=== PATIENT | male | born 1950 | race Asian ===

== ENCOUNTER 2016-09-08 02:05 | Inpatient (IN) | payer MEDICARE, MEDICAID ==
[~2016-09-08] VITALS: Ht 165.1 cm; Wt 49.2 kg
[~2016-09-08 02:05] MED LIST: ACET650S14 PR; ACID1TAB4 PO; ASA3 PO; ATOR40TA28 PO; AUD NEB; B CO1CAP4 PO; CHOL100030 PO; ESCI10TA PO; HEP5KI SQ; IPRNEB NEB; OXYC-158 PO; PANT40TA25 PO
[2016-09-08] MEDS ORDERED: IPRATROPIUM BROMIDE 0.5 MG/2.5 ML NEB SOLUTION NEB ONE (02:15)
[2016-09-08] MEDS ORDERED: ALBUTEROL SULFATE 5 MG/ML 20 ML NEB SOLN [BULK] NEB ONE (02:15)
[2016-09-08] MEDS ORDERED: CLOP75 PO (02:17)
[2016-09-08] MEDS ORDERED: ESCI10TA PO (02:17)
[2016-09-08] MEDS ORDERED: QUET25TA PO (02:17)
[2016-09-08] MEDS ORDERED: ASPI81TA2 PO (02:17)
[2016-09-08] MEDS ORDERED: DSS100 PO (02:17)
[2016-09-08] MEDS ORDERED: MUPI1OIN5 NASAL (02:17)
[2016-09-08] MEDS ORDERED: HEPA500015 SQ (02:17)
[2016-09-08] MEDS ORDERED: LOSA50TA37 PO (02:17)
[2016-09-08] MEDS ORDERED: INSNOV SQ (02:17)
[2016-09-08] MEDS ORDERED: FAMO20 PO (02:17)
[2016-09-08] MEDS ORDERED: ATOR10TA84 PO (02:17)
[2016-09-08] MEDS ORDERED: 0.9% SODIUM CHLORIDE 5 ML NEB SOLUTION NEB ONE ×2 (02:20→13:46)
[2016-09-08] MEDS ORDERED: MethylPREDNISolone SOD SUCC 125 MG/2 ML VIAL IVP ONE (02:30)
[2016-09-08] MEDS ORDERED: RAPID SEQUENCE KIT [RSI] 1 EACH KIT ONE ×2 (02:50)
[2016-09-08] MEDS ORDERED: PROPOFOL 1000 MG/ISO-OSM 100 ML IV PRN (03:09)
[2016-09-08 03:25] LABS: HEMATOCRIT 33.3 % (41-53); HEMOGLOBIN 10.4 g/dL (13.5-17.5); MEAN CORPUSCULAR HEMOGLOBIN 31.3 pg (26.0-34.0); MEAN CORPUSCULAR HGB CONC 31.3 G/dL (31.0-37.0); MEAN CORPUSCULAR VOLUME 100 fL (80-100); PLATELET COUNT (AUTO) 312 K/uL (150-450); RED BLOOD CELL COUNT(AUTO) 3.32 MIL/uL (4.50-5.90); RED CELL DISTRIBUTION WIDTH 17.5 % (11.5-14.5); WHITE BLOOD COUNT (AUTO) 28.5 K/uL (4.5-11.0)
[2016-09-08] MEDS ORDERED: VECURONIUM BROMIDE 10 MG/VIAL IVP ONE ×2 (03:30→12:00)
[2016-09-08] MEDS ORDERED: ETOMIDATE 2 MG/ML 10 ML VIAL IVP ONE ×2 (03:30→12:00)
[2016-09-08 03:38] LABS: SODIUM SERUM 133 mmol/L (136-145)
[2016-09-08 03:39] LABS: ANION GAP 12 mmol/L (8-16); CALCIUM, TOTAL 8.5 mg/dL (8.8-10.5); CARBON DIOXIDE 29 mmol/L (22-29); CHLORIDE 92 mmol/L (98-107); CREATININE 5.51 mg/dL (0.60-1.30); GLOMERULAR FILTR. RATE CALC 10 mL/min (>60); POTASSIUM 3.9 mmol/L (3.5-5.1); UREA NITROGEN, BLOOD 40 mg/dL (7-18)
[2016-09-08 03:43] LABS: BAND NEUTROPHILS % (MANUAL) 7 % (1-5); LYMPHOCYTES % (MANUAL) 5 % (22-44); TOTAL CELLS COUNTED 100
[2016-09-08 03:44] LABS: RBC MORPHOLOGY COMMENT ABNORMAL RBC MORPH
[2016-09-08 03:45] LABS: B-TYPE NATRIURETIC PEPTIDE > 5000 pg/mL (0-100)
[2016-09-08 03:50] LABS: ABG BASE EXCESS -0.3 mmol/L (-2.0-3.0); ABG HCO3 23.9 mmol/L (22.0-26.0); ABG OXYHEMOGLOBIN 97.8 % (94.0-100.0); ABG PCO2 51 mmHg (35-45); ABG PH 7.321 (7.35-7.450); TEMPERATURE, FAHRENHEIT, BG 98.5 FAHREN (96.0-98.6)
[2016-09-08 03:51] LABS: ALLEN TEST, BLOOD GAS POS
[2016-09-08 03:59] LABS: ALANINE AMINOTRANSFERASE 24 U/L (12-78); ALBUMIN 2.8 g/dL (3.4-5.0); ASPARTATE AMINOTRANSFERASE 29 U/L (15-37); BILIRUBIN,TOTAL 0.4 mg/dL (0.1-1.0); CREATINE KINASE MB 4.7 ng/mL (0-5); CREATINE KINASE, TOTAL 110 U/L (39-308)
[2016-09-08] MEDS ORDERED: PIPERACILLIN/TAZO 3.375 GM/D5W 50 ML IV ONE (04:00)
[2016-09-08] MEDS ORDERED: ACETAMINOPHEN 325 MG TABLET PO PRN ×2 (04:45→05:15)
[2016-09-08] MEDS ORDERED: 0.9% SODIUM CHLORIDE 10 ML SYRINGE IVP PRN (04:45)
[2016-09-08] MEDS ORDERED: MORPHINE SULFATE 2 MG/ML SYRINGE IVP PRN (05:15)
[2016-09-08] MEDS ORDERED: BISACODYL 10 MG RECTAL RECTAL SUPPOSITORY PR PRN (05:15)
[2016-09-08] MEDS ORDERED: DEXTROSE 50%-WATER 25 GM/50 ML SYRINGE IVP PRN (05:15)
[2016-09-08] MEDS ORDERED: INSULIN ASPART 100 UNITS/ML SQ PRN (05:15)
[2016-09-08] MEDS ORDERED: MAGNESIUM HYDROXIDE SUSPENSION 30 ML UDCUP PO PRN (05:15)
[2016-09-08] MEDS ORDERED: PIPERACILLIN SODIUM/TAZOBACTAM 0.75 GM in DEXTROSE 5%-WATER 50 ML IV PRN (05:30)
[2016-09-08 05:42] VITALS: BP 141/88
[2016-09-08 05:51] LABS: REFLEX LACTIC ACID? YES YES
[2016-09-08 08:00] VITALS: BP 132/86
[2016-09-08] MEDS: ALBUTEROL SULFATE 2.5 MG/0.5 ML NEB SOLUTION NEB SCH ×3 (08:00→19:51)
[2016-09-08] MEDS: HEPARIN SODIUM,PORCINE 5,000 UNITS/ML VIAL SQ SCH ×2 (08:37→18:19)
[2016-09-08] MEDS: ESCITALOPRAM OXALATE 10 MG TABLET PO SCH (08:37)
[2016-09-08] MEDS: QUEtiapine FUMARATE 25 MG TABLET PO SCH ×3 (08:38→20:51)
[2016-09-08] MEDS: ASPIRIN 81 MG CHEWABLE TABLET PO SCH (08:38)
[2016-09-08] MEDS: CLOPIDOGREL BISULFATE 75 MG TABLET PO SCH (08:38)
[2016-09-08] MEDS: PANTOPRAZOLE SODIUM 40 MG DR TABLET PO SCH (08:38)
[2016-09-08 10:09] LABS: HEMOGLOBIN A1C 5.6 % (4.5-6.2)
[2016-09-08 10:29] LABS: VITAMIN B12 LEVEL 902 pg/mL (211-911)
[2016-09-08 12:00] VITALS: BP 126/77
[2016-09-08] MEDS: PIPERACILLIN SODIUM/TAZOBACTAM 2.25 GM in DEXTROSE 5%-WATER 50 ML IV SCH ×2 (12:30→20:51)
[2016-09-08] MEDS ORDERED: SODIUM CHLORIDE 0.9% 250 ML IV ONE (12:43)
[2016-09-08 16:00] VITALS: BP 106/66
[2016-09-08 16:36] LABS: GLUCOSE COMMENT 1 Juice/Food/D50 Given; GLUCOSE,POINT OF CARE 61 MG/DL (70-110)
[2016-09-08 16:36] LABS: GLUCOSE,POINT OF CARE 125 MG/DL (70-110)
[2016-09-08] MEDS: IPRATROPIUM BROMIDE 0.5 MG/2.5 ML NEB SOLUTION NEB PRN (19:51)
[2016-09-08] MEDS: PROPOFOL 1000 MG/ISO-OSM 100 ML IV PRN (19:55)
[2016-09-08 20:00] VITALS: BP 117/76
[2016-09-08 22:19] LABS: CREATINE KINASE MB 19.5 ng/mL (0-5)
[2016-09-09] VITALS: BP 108/65
[2016-09-09] MEDS: HEPARIN SODIUM,PORCINE 5,000 UNITS/ML VIAL SQ SCH ×3 (00:30→17:07)
[2016-09-09 02:12] LABS: GLUCOSE,POINT OF CARE 117 MG/DL (70-110)
[2016-09-09 02:12] LABS: GLUCOSE,POINT OF CARE 206 MG/DL (70-110)
[2016-09-09 02:12] LABS: GLUCOSE,POINT OF CARE 106 MG/DL (70-110)
[2016-09-09] MEDS: IPRATROPIUM BROMIDE 0.5 MG/2.5 ML NEB SOLUTION NEB PRN ×2 (02:17→19:28)
[2016-09-09] MEDS: ALBUTEROL SULFATE 2.5 MG/0.5 ML NEB SOLUTION NEB SCH ×4 (02:17→19:28)
[2016-09-09 04:00] VITALS: BP 113/69
[2016-09-09] MEDS: PIPERACILLIN SODIUM/TAZOBACTAM 2.25 GM in DEXTROSE 5%-WATER 50 ML IV SCH ×3 (04:23→20:34)
[2016-09-09 04:49] LABS: BASOPHILS % (AUTO) 0.1 % (0.0-2.0); EOSINOPHILS % (AUTO) 0.1 % (1.0-6.0); HEMOGLOBIN 9.9 g/dL (13.5-17.5); LYMPHOCYTES # (AUTO) 1.2 K/uL (1.0-4.8); LYMPHOCYTES % (AUTO) 6.2 % (22.0-44.0); MEAN CORPUSCULAR HEMOGLOBIN 31.9 pg (26.0-34.0); MEAN CORPUSCULAR HGB CONC 31.8 G/dL (31.0-37.0); MEAN CORPUSCULAR VOLUME 100 fL (80-100); MONOCYTES # (AUTO) 0.8 K/uL (0.1-1.0); NEUTROPHILS # (AUTO) 17.7 K/uL (1.8-7.7); PLATELET COUNT (AUTO) 254 K/uL (150-450); RED BLOOD CELL COUNT(AUTO) 3.09 MIL/uL (4.50-5.90); RED CELL DISTRIBUTION WIDTH 17.6 % (11.5-14.5); WHITE BLOOD COUNT (AUTO) 19.8 K/uL (4.5-11.0)
[2016-09-09 04:50] LABS: NEUTROPHILS % (AUTO) 89.6 % (40.0-70.0)
[2016-09-09 04:55] LABS: ALBUMIN 2.3 g/dL (3.4-5.0); BILIRUBIN,TOTAL 0.5 mg/dL (0.1-1.0); CALCIUM, TOTAL 8.2 mg/dL (8.8-10.5); CREATININE 6.25 mg/dL (0.60-1.30); MAGNESIUM 2.4 mg/dL (1.80-2.40); PHOSPHORUS 8.2 mg/dL (2.5-4.9); POTASSIUM 5.8 mmol/L (3.5-5.1); THYROID STIMULATING HORMONE 3.71 uIU/mL (0.36-3.74); TOTAL PROTEIN, SERUM 6.7 g/dL (6.4-8.2)
[2016-09-09 05:05] LABS: CREATINE KINASE MB 30.6 ng/mL (0-5)
[2016-09-09] MEDS: PROPOFOL 1000 MG/ISO-OSM 100 ML IV PRN ×2 (05:49→08:55)
[2016-09-09] MEDS ORDERED: 0.9% SODIUM CHLORIDE 5 ML NEB SOLUTION NEB ONE ×2 (07:47→14:26)
[2016-09-09 08:00] VITALS: BP 113/74
[2016-09-09] MEDS: CLOPIDOGREL BISULFATE 75 MG TABLET PO SCH (08:55)
[2016-09-09] MEDS: QUEtiapine FUMARATE 25 MG TABLET PO SCH ×3 (08:55→20:34)
[2016-09-09] MEDS: ESCITALOPRAM OXALATE 10 MG TABLET PO SCH (08:55)
[2016-09-09] MEDS: PANTOPRAZOLE SODIUM 40 MG DR TABLET PO SCH (08:55)
[2016-09-09] MEDS: ASPIRIN 81 MG CHEWABLE TABLET PO SCH (08:56)
[2016-09-09] MEDS: -POST HEMODIALYSIS NOTE- MISC SCH ×2 (09:00→14:31)
[2016-09-09 10:15] LABS: ABG A-A DIFF O2 43.1 mmHg (10-20.0); ABG BASE EXCESS 1.8 mmol/L (-2.0-3.0); ABG HCO3 26.2 mmol/L (22.0-26.0); ABG OXYHEMOGLOBIN 98.6 % (94.0-100.0); ABG PCO2 35 mmHg (35-45); ABG PH 7.481 (7.35-7.450); ALLEN TEST, BLOOD GAS Positive; TEMPERATURE, FAHRENHEIT, BG 98.6 FAHREN (96.0-98.6)
[2016-09-09] MEDS ORDERED: SODIUM POLYSTYRENE SULFONATE 15 GM/60 ML SUSPENSION BOTTLE PO ONE (11:15)
[2016-09-09] MEDS ORDERED: SODIUM CHLORIDE 0.9% 250 ML IV ONE (11:37)
[2016-09-09 12:00] VITALS: BP 104/67
[2016-09-09 16:00] VITALS: BP 110/67
[2016-09-09 20:00] VITALS: BP 103/63
[2016-09-10] VITALS: BP 111/68
[2016-09-10] MEDS: HEPARIN SODIUM,PORCINE 5,000 UNITS/ML VIAL SQ SCH ×3 (00:57→16:30)
[2016-09-10] MEDS: IPRATROPIUM BROMIDE 0.5 MG/2.5 ML NEB SOLUTION NEB PRN ×3 (01:48→19:45)
[2016-09-10] MEDS: ALBUTEROL SULFATE 2.5 MG/0.5 ML NEB SOLUTION NEB SCH ×4 (01:48→19:45)
[2016-09-10 04:00] VITALS: BP 127/74
[2016-09-10] MEDS: PIPERACILLIN SODIUM/TAZOBACTAM 2.25 GM in DEXTROSE 5%-WATER 50 ML IV SCH ×3 (04:19→20:24)
[2016-09-10 05:25] LABS: BASOPHILS % (AUTO) 0.1 % (0.0-2.0); EOSINOPHILS % (AUTO) 1.1 % (1.0-6.0); HEMATOCRIT 30.7 % (41-53); LYMPHOCYTES # (AUTO) 0.9 K/uL (1.0-4.8); LYMPHOCYTES % (AUTO) 6.9 % (22.0-44.0); MEAN CORPUSCULAR HGB CONC 32.5 G/dL (31.0-37.0); MEAN CORPUSCULAR VOLUME 98 fL (80-100); MONOCYTES # (AUTO) 0.7 K/uL (0.1-1.0); MONOCYTES % (AUTO) 5.5 % (2.0-9.0); NEUTROPHILS # (AUTO) 10.8 K/uL (1.8-7.7); PLATELET COUNT (AUTO) 250 K/uL (150-450); RED BLOOD CELL COUNT(AUTO) 3.12 MIL/uL (4.50-5.90); RED CELL DISTRIBUTION WIDTH 18.4 % (11.5-14.5); WHITE BLOOD COUNT (AUTO) 12.5 K/uL (4.5-11.0)
[2016-09-10 05:28] LABS: NEUTROPHILS % (AUTO) 86.4 % (40.0-70.0)
[2016-09-10] MEDS: PROPOFOL 1000 MG/ISO-OSM 100 ML IV PRN ×2 (05:31→16:30)
[2016-09-10 05:32] LABS: ALBUMIN 2.2 g/dL (3.4-5.0); BILIRUBIN,TOTAL 0.5 mg/dL (0.1-1.0); CALCIUM, TOTAL 8.4 mg/dL (8.8-10.5); CREATININE 7.31 mg/dL (0.60-1.30); POTASSIUM 4.7 mmol/L (3.5-5.1); TOTAL PROTEIN, SERUM 6.5 g/dL (6.4-8.2)
[2016-09-10 08:00] VITALS: BP 118/73
[2016-09-10] MEDS: -POST HEMODIALYSIS NOTE- MISC SCH (08:25)
[2016-09-10 08:26] LABS: GLUCOSE,POINT OF CARE 92 MG/DL (70-110)
[2016-09-10 08:26] LABS: GLUCOSE COMMENT 1 Received Meds; GLUCOSE,POINT OF CARE 144 MG/DL (70-110)
[2016-09-10 08:26] LABS: GLUCOSE,POINT OF CARE 85 MG/DL (70-110)
[2016-09-10 08:26] LABS: GLUCOSE,POINT OF CARE 91 MG/DL (70-110)
[2016-09-10 08:26] LABS: GLUCOSE COMMENT 1 Received Meds; GLUCOSE,POINT OF CARE 125 MG/DL (70-110)
[2016-09-10] MEDS: CLOPIDOGREL BISULFATE 75 MG TABLET PO SCH (08:26)
[2016-09-10] MEDS: ESCITALOPRAM OXALATE 10 MG TABLET PO SCH (08:26)
[2016-09-10] MEDS: ASPIRIN 81 MG CHEWABLE TABLET PO SCH (08:26)
[2016-09-10] MEDS: PANTOPRAZOLE SODIUM 40 MG DR TABLET PO SCH (08:26)
[2016-09-10] MEDS: QUEtiapine FUMARATE 25 MG TABLET PO SCH ×3 (08:26→20:24)
[2016-09-10 09:02] LABS: RBC MORPHOLOGY COMMENT ABNORMAL RBC MORPH
[2016-09-10 09:03] LABS: ABG A-A DIFF O2 60.7 mmHg (10-20.0); ABG BASE EXCESS -0.4 mmol/L (-2.0-3.0); ABG HCO3 24.5 mmol/L (22.0-26.0); ABG OXYHEMOGLOBIN 98.3 % (94.0-100.0); ABG PCO2 35 mmHg (35-45); ABG PH 7.447 (7.35-7.450); TEMPERATURE, FAHRENHEIT, BG 98.6 FAHREN (96.0-98.6)
[2016-09-10 09:07] LABS: ALLEN TEST, BLOOD GAS Positive
[2016-09-10 12:00] VITALS: BP 127/73
[2016-09-10] MEDS ORDERED: SODIUM CHLORIDE 0.9% 1,000 ML IV ONE ×2 (12:56→12:57)
[2016-09-10] MEDS ORDERED: 0.9% SODIUM CHLORIDE 5 ML NEB SOLUTION NEB ONE (14:11)
[2016-09-10 16:00] VITALS: BP 131/71
[2016-09-10] MEDS ORDERED: SODIUM CHLORIDE 0.9% 250 ML IV ONE (17:11)
[2016-09-10 20:00] VITALS: BP 105/60
[2016-09-11] VITALS: BP 130/83
[2016-09-11] MEDS: HEPARIN SODIUM,PORCINE 5,000 UNITS/ML VIAL SQ SCH ×3 (00:09→17:28)
[2016-09-11] MEDS: PROPOFOL 1000 MG/ISO-OSM 100 ML IV PRN ×2 (01:35→09:17)
[2016-09-11] MEDS: ALBUTEROL SULFATE 2.5 MG/0.5 ML NEB SOLUTION NEB SCH ×4 (02:01→19:56)
[2016-09-11] MEDS: IPRATROPIUM BROMIDE 0.5 MG/2.5 ML NEB SOLUTION NEB PRN (02:01)
[2016-09-11 02:50] LABS: GLUCOSE,POINT OF CARE 105 MG/DL (70-110)
[2016-09-11 02:50] LABS: GLUCOSE COMMENT 1 Received Meds; GLUCOSE,POINT OF CARE 93 MG/DL (70-110)
[2016-09-11 02:50] LABS: GLUCOSE,POINT OF CARE 98 MG/DL (70-110)
[2016-09-11 04:00] VITALS: BP 122/70
[2016-09-11] MEDS ORDERED: SODIUM CHLORIDE 0.9% 250 ML IV ONE (04:33)
[2016-09-11] MEDS: PIPERACILLIN SODIUM/TAZOBACTAM 2.25 GM in DEXTROSE 5%-WATER 50 ML IV SCH ×3 (04:34→20:32)
[2016-09-11 06:43] LABS: BASOPHILS % (AUTO) 0.2 % (0.0-2.0); HEMATOCRIT 29.6 % (41-53); HEMOGLOBIN 9.3 g/dL (13.5-17.5); LYMPHOCYTES # (AUTO) 0.7 K/uL (1.0-4.8); LYMPHOCYTES % (AUTO) 6.2 % (22.0-44.0); MEAN CORPUSCULAR HEMOGLOBIN 31.5 pg (26.0-34.0); MEAN CORPUSCULAR HGB CONC 31.4 G/dL (31.0-37.0); MEAN CORPUSCULAR VOLUME 100 fL (80-100); MONOCYTES # (AUTO) 0.6 K/uL (0.1-1.0); MONOCYTES % (AUTO) 5.3 % (2.0-9.0); NEUTROPHILS # (AUTO) 9.3 K/uL (1.8-7.7); PLATELET COUNT (AUTO) 264 K/uL (150-450); RED BLOOD CELL COUNT(AUTO) 2.96 MIL/uL (4.50-5.90); RED CELL DISTRIBUTION WIDTH 18.1 % (11.5-14.5)
[2016-09-11] MEDS ORDERED: 0.9% SODIUM CHLORIDE 5 ML NEB SOLUTION NEB ONE ×2 (06:47→19:25)
[2016-09-11 07:00] LABS: NEUTROPHILS % (AUTO) 85.3 % (40.0-70.0)
[2016-09-11 07:06] LABS: ALBUMIN 2.2 g/dL (3.4-5.0); BILIRUBIN,TOTAL 0.5 mg/dL (0.1-1.0); CALCIUM, TOTAL 8.8 mg/dL (8.8-10.5); CREATININE 5.11 mg/dL (0.60-1.30); POTASSIUM 4.1 mmol/L (3.5-5.1); TOTAL PROTEIN, SERUM 6.8 g/dL (6.4-8.2)
[2016-09-11 08:00] VITALS: BP_SYST 133; BP_SYST 142; BP_DIAS 75; BP_DIAS 78
[2016-09-11] MEDS: ESCITALOPRAM OXALATE 10 MG TABLET PO SCH (09:17)
[2016-09-11] MEDS: -POST HEMODIALYSIS NOTE- MISC SCH (09:17)
[2016-09-11] MEDS: CLOPIDOGREL BISULFATE 75 MG TABLET PO SCH (09:17)
[2016-09-11] MEDS: QUEtiapine FUMARATE 25 MG TABLET PO SCH ×3 (09:17→20:54)
[2016-09-11] MEDS: ASPIRIN 81 MG CHEWABLE TABLET PO SCH (09:17)
[2016-09-11] MEDS: PANTOPRAZOLE SODIUM 40 MG DR TABLET PO SCH (09:17)
[2016-09-11 11:00] LABS: BAND NEUTROPHILS % (MANUAL) 9 % (1-5); LYMPHOCYTES % (MANUAL) 10 % (22-44); TOTAL CELLS COUNTED 100
[2016-09-11 11:01] LABS: RBC MORPHOLOGY COMMENT ABNORMAL RBC MORPH
[2016-09-11 11:51] LABS: ABG A-A DIFF O2 54.9 mmHg (10-20.0); ABG BASE EXCESS -2.4 mmol/L (-2.0-3.0); ABG HCO3 22.8 mmol/L (22.0-26.0); ABG OXYHEMOGLOBIN 98.3 % (94.0-100.0); ABG PCO2 36 mmHg (35-45); ABG PH 7.408 (7.35-7.450); TEMPERATURE, FAHRENHEIT, BG 98.6 FAHREN (96.0-98.6)
[2016-09-11 12:00] VITALS: BP 142/78
[2016-09-11] MEDS ORDERED: SODIUM CHLORIDE 0.9% 1,000 ML IV ONE (13:29)
[2016-09-11 16:00] VITALS: BP 157/78
[2016-09-11] MEDS ORDERED: INSULIN REGULAR, HUMAN 100 UNITS/ML SQ PRN (19:15)
[2016-09-11] MEDS ORDERED: DEXTROSE 50%-WATER 25 GM/50 ML SYRINGE IVP PRN (19:15)
[2016-09-11 20:00] VITALS: BP 134/94
[2016-09-12] VITALS (7 sets, daily range): BP systolic 116–160; BP diastolic 28–90
[2016-09-12] MEDS: HEPARIN SODIUM,PORCINE 5,000 UNITS/ML VIAL SQ SCH ×3 (01:09→17:02)
[2016-09-12] MEDS ORDERED: 0.9% SODIUM CHLORIDE 5 ML NEB SOLUTION NEB ONE ×4 (01:37→19:32)
[2016-09-12] MEDS: ALBUTEROL SULFATE 2.5 MG/0.5 ML NEB SOLUTION NEB SCH ×4 (01:48→20:17)
[2016-09-12] MEDS: PIPERACILLIN SODIUM/TAZOBACTAM 2.25 GM in DEXTROSE 5%-WATER 50 ML IV SCH ×3 (04:06→20:32)
[2016-09-12 06:01] LABS: GLUCOSE,POINT OF CARE 77 MG/DL (70-110)
[2016-09-12 06:14] LABS: BASOPHILS % (AUTO) 0.2 % (0.0-2.0); EOSINOPHILS % (AUTO) 2.1 % (1.0-6.0); HEMATOCRIT 33.8 % (41-53); HEMOGLOBIN 10.7 g/dL (13.5-17.5); LYMPHOCYTES # (AUTO) 0.6 K/uL (1.0-4.8); LYMPHOCYTES % (AUTO) 6.5 % (22.0-44.0); MEAN CORPUSCULAR HEMOGLOBIN 31.7 pg (26.0-34.0); MEAN CORPUSCULAR HGB CONC 31.8 G/dL (31.0-37.0); MEAN CORPUSCULAR VOLUME 100 fL (80-100); MONOCYTES # (AUTO) 0.8 K/uL (0.1-1.0); MONOCYTES % (AUTO) 7.9 % (2.0-9.0); NEUTROPHILS # (AUTO) 8.2 K/uL (1.8-7.7); NEUTROPHILS % (AUTO) 83.3 % (40.0-70.0); PLATELET COUNT (AUTO) 263 K/uL (150-450); RED BLOOD CELL COUNT(AUTO) 3.39 MIL/uL (4.50-5.90); RED CELL DISTRIBUTION WIDTH 18.2 % (11.5-14.5); WHITE BLOOD COUNT (AUTO) 9.8 K/uL (4.5-11.0)
[2016-09-12 06:27] LABS: ALBUMIN 2.5 g/dL (3.4-5.0); BILIRUBIN,TOTAL 0.6 mg/dL (0.1-1.0); CALCIUM, TOTAL 9.3 mg/dL (8.8-10.5); CREATININE 4.03 mg/dL (0.60-1.30); TOTAL PROTEIN, SERUM 7.8 g/dL (6.4-8.2)
[2016-09-12 08:26] LABS: ABG A-A DIFF O2 24.7 mmHg (10-20.0); ABG BASE EXCESS 1.6 mmol/L (-2.0-3.0); ABG HCO3 25.9 mmol/L (22.0-26.0); ABG PCO2 38 mmHg (35-45); ABG PH 7.445 (7.35-7.450); TEMPERATURE, FAHRENHEIT, BG 98.6 FAHREN (96.0-98.6)
[2016-09-12 08:34] LABS: ALLEN TEST, BLOOD GAS Positive
[2016-09-12 08:38] LABS: RBC MORPHOLOGY COMMENT ABNORMAL RBC MORPH
[2016-09-12] MEDS: QUEtiapine FUMARATE 25 MG TABLET PO SCH ×3 (09:08→20:31)
[2016-09-12] MEDS: PANTOPRAZOLE SODIUM 40 MG DR TABLET PO SCH (09:08)
[2016-09-12] MEDS: CLOPIDOGREL BISULFATE 75 MG TABLET PO SCH (09:08)
[2016-09-12] MEDS: ESCITALOPRAM OXALATE 10 MG TABLET PO SCH (09:08)
[2016-09-12] MEDS: ASPIRIN 81 MG CHEWABLE TABLET PO SCH (09:08)
[2016-09-12] MEDS: -POST HEMODIALYSIS NOTE- MISC SCH (09:09)
[2016-09-12] MEDS ORDERED: VANCOMYCIN HCL 1 GM/D5% WATER 200 ML IV PRN (11:00)
[2016-09-12] MEDS ORDERED: VANCOMYCIN HCL 1 GM/D5% WATER 200 ML IV ONE (11:00)
[2016-09-13] VITALS (7 sets, daily range): BP systolic 126–155; BP diastolic 41–77
[2016-09-13] MEDS: HEPARIN SODIUM,PORCINE 5,000 UNITS/ML VIAL SQ SCH ×4 (00:05→23:42)
[2016-09-13] MEDS ORDERED: 0.9% SODIUM CHLORIDE 5 ML NEB SOLUTION NEB ONE ×4 (02:39→20:02)
[2016-09-13] MEDS: ALBUTEROL SULFATE 2.5 MG/0.5 ML NEB SOLUTION NEB SCH ×4 (02:42→20:10)
[2016-09-13] MEDS ORDERED: SODIUM CHLORIDE 0.9% 250 ML IV ONE (04:32)
[2016-09-13] MEDS: PIPERACILLIN SODIUM/TAZOBACTAM 2.25 GM in DEXTROSE 5%-WATER 50 ML IV SCH ×3 (04:42→20:00)
[2016-09-13] MEDS ORDERED: SODIUM CHLORIDE 0.9% 1,000 ML IV ONE ×2 (05:48→05:49)
[2016-09-13 06:46] LABS: BASOPHILS % (AUTO) 0.1 % (0.0-2.0); EOSINOPHILS % (AUTO) 3.7 % (1.0-6.0); HEMATOCRIT 34.5 % (41-53); HEMOGLOBIN 10.9 g/dL (13.5-17.5); LYMPHOCYTES # (AUTO) 0.9 K/uL (1.0-4.8); LYMPHOCYTES % (AUTO) 7.4 % (22.0-44.0); MEAN CORPUSCULAR HEMOGLOBIN 31.1 pg (26.0-34.0); MEAN CORPUSCULAR HGB CONC 31.4 G/dL (31.0-37.0); MEAN CORPUSCULAR VOLUME 99 fL (80-100); MONOCYTES # (AUTO) 0.9 K/uL (0.1-1.0); MONOCYTES % (AUTO) 7.7 % (2.0-9.0); NEUTROPHILS # (AUTO) 9.6 K/uL (1.8-7.7); NEUTROPHILS % (AUTO) 81.1 % (40.0-70.0); PLATELET COUNT (AUTO) 292 K/uL (150-450); RED BLOOD CELL COUNT(AUTO) 3.49 MIL/uL (4.50-5.90); RED CELL DISTRIBUTION WIDTH 17.6 % (11.5-14.5); WHITE BLOOD COUNT (AUTO) 11.8 K/uL (4.5-11.0)
[2016-09-13 06:49] LABS: RBC MORPHOLOGY COMMENT ABNORMAL RBC MORPH
[2016-09-13 06:56] LABS: GLUCOSE,POINT OF CARE 84 MG/DL (70-110)
[2016-09-13 06:56] LABS: GLUCOSE,POINT OF CARE 83 MG/DL (70-110)
[2016-09-13 06:58] LABS: ALBUMIN 2.5 g/dL (3.4-5.0); BILIRUBIN,TOTAL 0.6 mg/dL (0.1-1.0); CALCIUM, TOTAL 9.3 mg/dL (8.8-10.5); CREATININE 5.73 mg/dL (0.60-1.30); POTASSIUM 4.3 mmol/L (3.5-5.1)
[2016-09-13] MEDS: -POST HEMODIALYSIS NOTE- MISC SCH (09:00)
[2016-09-13] MEDS: QUEtiapine FUMARATE 25 MG TABLET PO SCH ×3 (09:34→20:44)
[2016-09-13] MEDS: ASPIRIN 81 MG CHEWABLE TABLET PO SCH (09:34)
[2016-09-13] MEDS: CLOPIDOGREL BISULFATE 75 MG TABLET PO SCH (09:35)
[2016-09-13] MEDS: PANTOPRAZOLE SODIUM 40 MG DR TABLET PO SCH (09:35)
[2016-09-13] MEDS: ESCITALOPRAM OXALATE 10 MG TABLET PO SCH (09:35)
[2016-09-13 11:16] LABS: GLUCOSE,POINT OF CARE 93 MG/DL (70-110)
[2016-09-13 12:43] LABS: ABG A-A DIFF O2 19.5 mmHg (10-20.0); ABG BASE EXCESS 2.1 mmol/L (-2.0-3.0); ABG HCO3 26.3 mmol/L (22.0-26.0); ABG OXYHEMOGLOBIN 93.4 % (94.0-100.0); ABG PCO2 41 mmHg (35-45); ABG PH 7.429 (7.35-7.450)
[2016-09-13 12:44] LABS: ALLEN TEST, BLOOD GAS Positive; TEMPERATURE, FAHRENHEIT, BG 98.6 FAHREN (96.0-98.6)
[2016-09-13] MEDS ORDERED: DEXTROSE 50%-WATER 25 GM/50 ML SYRINGE IVP PRN (15:15)
[2016-09-13 17:47] LABS: GLUCOSE COMMENT 1 Received Meds; GLUCOSE,POINT OF CARE 141 MG/DL (70-110)
[2016-09-13 17:47] LABS: GLUCOSE COMMENT 1 Received Meds; GLUCOSE,POINT OF CARE 152 MG/DL (70-110)
[2016-09-13] MEDS: INSULIN ASPART 100 UNITS/ML SQ PRN (17:58)
[2016-09-13 21:31] LABS: GLUCOSE COMMENT 1 Received Meds; GLUCOSE,POINT OF CARE 108 MG/DL (70-110)
[2016-09-13 21:31] LABS: GLUCOSE,POINT OF CARE 121 MG/DL (70-110)
[2016-09-13 21:31] LABS: GLUCOSE,POINT OF CARE 119 MG/DL (70-110)
[2016-09-13 21:31] LABS: GLUCOSE,POINT OF CARE 96 MG/DL (70-110)
[2016-09-13 21:36] LABS: GLUCOSE,POINT OF CARE 103 MG/DL (70-110)
[2016-09-13 22:46] LABS: GLUCOSE COMMENT 1 Juice/Food/D50 Given; GLUCOSE,POINT OF CARE 70 MG/DL (70-110)
[2016-09-14] MEDS ORDERED: 0.9% SODIUM CHLORIDE 5 ML NEB SOLUTION NEB ONE (01:16)
[2016-09-14] MEDS: ALBUTEROL SULFATE 2.5 MG/0.5 ML NEB SOLUTION NEB SCH ×3 (02:32→14:00)
[2016-09-14] MEDS: PIPERACILLIN SODIUM/TAZOBACTAM 2.25 GM in DEXTROSE 5%-WATER 50 ML IV SCH (04:24)
[2016-09-14 04:55] VITALS: BP 133/55
[2016-09-14 07:23] VITALS: BP 126/40
[2016-09-14] MEDS ORDERED: VANCOMYCIN HCL 1 GM/D5% WATER 200 ML IV ONE (08:00)
[2016-09-14] MEDS: -POST HEMODIALYSIS NOTE- MISC SCH (09:00)
[2016-09-14] MEDS: HEPARIN SODIUM,PORCINE 5,000 UNITS/ML VIAL SQ SCH ×2 (09:18→16:21)
[2016-09-14] MEDS: CLOPIDOGREL BISULFATE 75 MG TABLET PO SCH (09:19)
[2016-09-14] MEDS: ESCITALOPRAM OXALATE 10 MG TABLET PO SCH (09:19)
[2016-09-14] MEDS: ASPIRIN 81 MG CHEWABLE TABLET PO SCH (09:19)
[2016-09-14] MEDS: PANTOPRAZOLE SODIUM 40 MG DR TABLET PO SCH (09:19)
[2016-09-14] MEDS: QUEtiapine FUMARATE 25 MG TABLET PO SCH ×2 (09:19→16:21)
[2016-09-14 11:28] VITALS: BP 96/75
[2016-09-14] MEDS: INSULIN ASPART 100 UNITS/ML SQ PRN ×2 (11:55→17:35)
[2016-09-14 11:56] VITALS: BP 117/76
[2016-09-14 12:17] LABS: GLUCOSE,POINT OF CARE 103 MG/DL (70-110)
[2016-09-14] MEDS ORDERED: AUD NEB (15:34)
[2016-09-14] MEDS ORDERED: BISA10S PR (15:35)
[2016-09-14] MEDS ORDERED: ACET-2247 PO (15:35)
[2016-09-14] MEDS ORDERED: IPRNEB NEB (15:36)
[2016-09-14] MEDS ORDERED: MOM30 PO (15:37)
[2016-09-14] MEDS ORDERED: VANC1I IVPB (15:40)
[2016-09-14 17:41] LABS: GLUCOSE,POINT OF CARE 110 MG/DL (70-110)
[2016-09-14 17:50] VITALS: BP 124/73
[2016-09-15 20:11] LABS: GLUCOSE,POINT OF CARE 78 MG/DL (70-110)
== END 2016-09-14 19:25 | DRG 871 ==
LOC: EMS 02:07 → ICU 04:38 → UNDOADMIN 04:45 → ICU 04:45 → 5S 09-12 21:35
PROVIDERS: ADMIT Hospitalist; ATTEND Hospitalist
PROC: 5A1945Z Respiratory Ventilation, 24-96 Consecutive Hours (ICD-10-PCS; principal; 2016-09-08)
PROC: 0BH18EZ Insertion of Endotracheal Airway into Trachea, Via Natural or Artificial Opening Endoscopic (ICD-10-PCS; 2016-09-08)
PROC: 5A1D60Z (ICD-10-PCS; 2016-09-13)
DX: A41.2 Sepsis due to unspecified staphylococcus (principal); E43 Unspecified severe protein-calorie malnutrition; N18.6 End stage renal disease; J96.01 Acute respiratory failure with hypoxia; J69.0 Pneumonitis due to inhalation of food and vomit; I50.43 Acute on chronic combined systolic (congestive) and diastolic (congestive) heart failure; I13.2 Hypertensive heart and chronic kidney disease with heart failure and with stage 5 chronic kidney disease, or end stage renal disease; I69.354 Hemiplegia and hemiparesis following cerebral infarction affecting left non-dominant side; Z68.1 Body mass index [BMI] 19.9 or less, adult; E87.1 Hypo-osmolality and hyponatremia; N25.81 Secondary hyperparathyroidism of renal origin; E87.2 Acidosis; I25.10 Atherosclerotic heart disease of native coronary artery without angina pectoris; D63.1 Anemia in chronic kidney disease; F32.9 Major depressive disorder, single episode, unspecified; E11.22 Type 2 diabetes mellitus with diabetic chronic kidney disease; E78.5 Hyperlipidemia, unspecified; Z99.2 Dependence on renal dialysis; I69.320 Aphasia following cerebral infarction; Z79.899 Other long term (current) drug therapy; Z79.82 Long term (current) use of aspirin; Z79.01 Long term (current) use of anticoagulants; Z79.02 Long term (current) use of antithrombotics/antiplatelets; Z79.4 Long term (current) use of insulin; Z87.01 Personal history of pneumonia (recurrent); Z83.3 Family history of diabetes mellitus; Z82.49 Family history of ischemic heart disease and other diseases of the circulatory system
CPT/HCPCS: 31500; 71250; 82607; 82746; 82805; 82962; 83036; 83540; 83550; 83605; 83735; 84100; 84443; 85007; 87040; 87070; 87081; 87106; 87205; 87324; 87340; 87449; 90935; 92526; 92610; 93005; 93306; 94002; 94003; 94640; 94644; 96374; 96375; 99291; J1644; J2543; J2704; J2930; J3370; J3490; J7030; J7050; J7060

== ENCOUNTER 2016-10-15 16:21 | Inpatient (IN) | payer MEDICARE, MEDICAID ==
[~2016-10-15] VITALS: Ht 154.9 cm; Wt 50.0 kg
[2016-10-15] MEDS ORDERED: RAPID SEQUENCE KIT [RSI] 1 EACH KIT ONE ×2 (18:29)
[2016-10-15] MEDS ORDERED: SUCCINYLCHOLINE CHLORIDE 20 MG/ML 10 ML VIAL ONE (18:29)
[2016-10-15] MEDS ORDERED: FUROSEMIDE 40 MG/4 ML VIAL IVP ONE ×2 (18:30→20:15)
[2016-10-15 18:32] LABS: BASOPHILS % (AUTO) 0.7 % (0.0-2.0); EOSINOPHILS % (AUTO) 1.7 % (1.0-6.0); HEMATOCRIT 36.4 % (41-53); HEMOGLOBIN 11.3 g/dL (13.5-17.5); LYMPHOCYTES # (AUTO) 2.9 K/uL (1.0-4.8); LYMPHOCYTES % (AUTO) 20.6 % (22.0-44.0); MEAN CORPUSCULAR HEMOGLOBIN 31.5 pg (26.0-34.0); MEAN CORPUSCULAR HGB CONC 31.1 G/dL (31.0-37.0); MEAN CORPUSCULAR VOLUME 102 fL (80-100); MONOCYTES # (AUTO) 1.4 K/uL (0.1-1.0); MONOCYTES % (AUTO) 9.8 % (2.0-9.0); NEUTROPHILS # (AUTO) 9.4 K/uL (1.8-7.7); NEUTROPHILS % (AUTO) 67.2 % (40.0-70.0); PLATELET COUNT (AUTO) 123 K/uL (150-450); RED BLOOD CELL COUNT(AUTO) 3.59 MIL/uL (4.50-5.90); RED CELL DISTRIBUTION WIDTH 19.9 % (11.5-14.5)
[2016-10-15 18:42] LABS: ANION GAP 16 mmol/L (8-16); CALCIUM, TOTAL 8.8 mg/dL (8.8-10.5); CARBON DIOXIDE 25 mmol/L (22-29); CHLORIDE 98 mmol/L (98-107); CREATININE 6.44 mg/dL (0.60-1.30); GLOMERULAR FILTR. RATE CALC 9 mL/min (>60); POTASSIUM 4.2 mmol/L (3.5-5.1); SODIUM SERUM 139 mmol/L (136-145); UREA NITROGEN, BLOOD 72 mg/dL (7-18)
[2016-10-15 18:43] LABS: INR 1.2 (0.9-1.1)
[2016-10-15 18:45] LABS: RBC MORPHOLOGY COMMENT ABNORMAL RBC MORPH
[2016-10-15 18:54] LABS: B-TYPE NATRIURETIC PEPTIDE > 5000 pg/mL (0-100)
[2016-10-15 19:03] LABS: ABG A-A DIFF O2 59.4 mmHg (10-20.0); ABG BASE EXCESS -1.2 mmol/L (-2.0-3.0); ABG HCO3 23.7 mmol/L (22.0-26.0); ABG OXYHEMOGLOBIN 97.5 % (94.0-100.0); ABG PCO2 40 mmHg (35-45); ABG PH 7.395 (7.35-7.450); ALLEN TEST, BLOOD GAS Positive; TEMPERATURE, FAHRENHEIT, BG 98.6 FAHREN (96.0-98.6)
[2016-10-15 19:04] LABS: IPAP, BG 12 cm H2O
[2016-10-15 19:08] LABS: ALANINE AMINOTRANSFERASE 270 U/L (12-78); ALBUMIN 2.7 g/dL (3.4-5.0); ASPARTATE AMINOTRANSFERASE 237 U/L (15-37); BILIRUBIN,TOTAL 0.7 mg/dL (0.1-1.0); CREATINE KINASE MB 7.6 ng/mL (0-5); CREATINE KINASE, TOTAL 152 U/L (39-308)
[2016-10-15 19:37] LABS: LACTIC ACID 2.4 mmol/L (0.4-2.0)
[2016-10-15] MEDS ORDERED: ONDANSETRON HCL 4 MG/2 ML VIAL IVP PRN ×2 (20:00)
[2016-10-15] MEDS ORDERED: 0.9% SODIUM CHLORIDE 10 ML SYRINGE IVP PRN (20:00)
[2016-10-15] MEDS ORDERED: INSULIN ASPART 100 UNITS/ML SQ PRN (20:00)
[2016-10-15] MEDS ORDERED: ACETAMINOPHEN 325 MG TABLET PO PRN (20:00)
[2016-10-15] MEDS ORDERED: LEVOFLOXACIN 500 MG/D5% WATER 100 ML IV ONE (20:15)
[2016-10-15] MEDS ORDERED: PIPERACILLIN SODIUM/TAZOBACTAM 2.25 GM in DEXTROSE 5%-WATER 50 ML IV SCH (20:45)
[2016-10-15 20:50] LABS: REFLEX LACTIC ACID? YES YES
[2016-10-15] MEDS ORDERED: VANCOMYCIN HCL 1.25 GM in DEXTROSE 5%-WATER 250 ML IV ONE (22:00)
[2016-10-15] MEDS: ALBUTEROL SULFATE 2.5 MG/0.5 ML NEB SOLUTION NEB SCH (22:11)
[2016-10-15] MEDS: IPRATROPIUM BROMIDE 0.5 MG/2.5 ML NEB SOLUTION NEB SCH (22:11)
[2016-10-15] MEDS ORDERED: VANCOMYCIN HCL 1 GM/D5% WATER 200 ML IV ONE (22:15)
[2016-10-16] MEDS: PIPERACILLIN SODIUM/TAZOBACTAM 2.25 GM in DEXTROSE 5%-WATER 50 ML IV SCH ×3 (00:48→22:32)
[2016-10-16] MEDS: HEPARIN SODIUM,PORCINE 5,000 UNITS/ML VIAL SQ SCH ×3 (00:48→15:40)
[2016-10-16] MEDS ORDERED: LORazepam 2 MG/ML VIAL IVP PRN (01:30)
[2016-10-16] MEDS ORDERED: ACETAMINOPHEN 500 MG TABLET PO PRN (01:30)
[2016-10-16] MEDS ORDERED: HYDROCODONE/ACETAMINOPHEN 5-325 MG TABLET PO PRN (01:30)
[2016-10-16] MEDS ORDERED: MORPHINE SULFATE 2 MG/ML SYRINGE IVP PRN (01:30)
[2016-10-16] MEDS ORDERED: LORazepam 2 MG/ML VIAL ONE (01:38)
[2016-10-16] MEDS ORDERED: MORPHINE SULFATE 2 MG/ML SYRINGE ONE (01:38)
[2016-10-16] MEDS: IPRATROPIUM BROMIDE 0.5 MG/2.5 ML NEB SOLUTION NEB SCH ×6 (03:14→23:15)
[2016-10-16] MEDS: ALBUTEROL SULFATE 2.5 MG/0.5 ML NEB SOLUTION NEB SCH ×6 (03:14→23:15)
[2016-10-16 07:01] LABS: GLUCOSE COMMENT 1 Doctor Notified; GLUCOSE,POINT OF CARE 66 MG/DL (70-110)
[2016-10-16] MEDS: DEXTROSE 50%-WATER 25 GM/50 ML SYRINGE IVP PRN (07:37)
[2016-10-16] MEDS ORDERED: VANCOMYCIN HCL 1 GM/D5% WATER 200 ML IV PRN (08:00)
[2016-10-16 08:08] LABS: EOSINOPHILS # (AUTO) 0.04 K/uL (0.00-0.70); EOSINOPHILS % (AUTO) 0.28 % (1.0-6.0); HEMATOCRIT 31.5 % (41-53); HEMOGLOBIN 10.1 g/dL (13.5-17.5); LYMPHOCYTES # (AUTO) 0.7 K/uL (1.0-4.8); LYMPHOCYTES % (AUTO) 4.5 % (22.0-44.0); MEAN CORPUSCULAR HEMOGLOBIN 31.8 pg (26.0-34.0); MEAN CORPUSCULAR HGB CONC 32.1 G/dL (31.0-37.0); MEAN CORPUSCULAR VOLUME 99 fL (80-100); MONOCYTES # (AUTO) 1.1 K/uL (0.1-1.0); MONOCYTES % (AUTO) 6.9 % (2.0-9.0); NEUTROPHILS # (AUTO) 13.8 K/uL (1.8-7.7); PLATELET COUNT (AUTO) 106 K/uL (150-450); RED BLOOD CELL COUNT(AUTO) 3.19 MIL/uL (4.50-5.90); RED CELL DISTRIBUTION WIDTH 19.9 % (11.5-14.5); WHITE BLOOD COUNT (AUTO) 15.6 K/uL (4.5-11.0)
[2016-10-16 08:09] LABS: NEUTROPHILS % (AUTO) 88.3 % (40.0-70.0)
[2016-10-16] MEDS: PANTOPRAZOLE SODIUM 40 MG/VIAL IVP SCH (08:27)
[2016-10-16] MEDS: ASPIRIN 81 MG CHEWABLE TABLET PO SCH (08:28)
[2016-10-16] MEDS: CLOPIDOGREL BISULFATE 75 MG TABLET PO SCH (08:29)
[2016-10-16 08:31] LABS: RBC MORPHOLOGY COMMENT ABNORMAL RBC MORPH
[2016-10-16 08:41] LABS: CALCIUM, TOTAL 8.1 mg/dL (8.8-10.5); CHOL/HDL RATIO 2.4 (4.2-7.3); CREATINE KINASE MB 16.1 ng/mL (0-5); CREATININE 6.95 mg/dL (0.60-1.30); MAGNESIUM 2.4 mg/dL (1.80-2.40); POTASSIUM 4.6 mmol/L (3.5-5.1); THYROID STIMULATING HORMONE 6.98 uIU/mL (0.36-3.74)
[2016-10-16 08:47] LABS: HEMOGLOBIN A1C 5.5 % (4.5-6.2)
[2016-10-16 08:56] LABS: GLUCOSE,POINT OF CARE 141 MG/DL (70-110)
[2016-10-16] MEDS ORDERED: VANCOMYCIN HCL 1 GM/D5% WATER 200 ML IV SCH (09:00)
[2016-10-16] MEDS: LOSARTAN POTASSIUM 50 MG TABLET PO SCH (09:00)
[2016-10-16] MEDS: VITAMIN B COMP/VIT C/FOLIC ACID CAPSULE PO SCH (09:00)
[2016-10-16 09:10] LABS: VITAMIN B12 LEVEL > 2000 pg/mL (211-911)
[2016-10-16 12:54] VITALS: BP 113/64
[2016-10-16 12:55] VITALS: BP 113/64
[2016-10-16 12:58] LABS: BASOPHILS % (AUTO) 0.2 % (0.0-2.0); EOSINOPHILS % (AUTO) 1.1 % (1.0-6.0); HEMATOCRIT 34.8 % (41-53); HEMOGLOBIN 10.9 g/dL (13.5-17.5); LYMPHOCYTES # (AUTO) 1.1 K/uL (1.0-4.8); LYMPHOCYTES % (AUTO) 7.9 % (22.0-44.0); MEAN CORPUSCULAR HEMOGLOBIN 31.5 pg (26.0-34.0); MEAN CORPUSCULAR HGB CONC 31.5 G/dL (31.0-37.0); MEAN CORPUSCULAR VOLUME 100 fL (80-100); MONOCYTES # (AUTO) 0.9 K/uL (0.1-1.0); MONOCYTES % (AUTO) 6.7 % (2.0-9.0); NEUTROPHILS # (AUTO) 11.2 K/uL (1.8-7.7); NEUTROPHILS % (AUTO) 84.1 % (40.0-70.0); PLATELET COUNT (AUTO) 115 K/uL (150-450); RED BLOOD CELL COUNT(AUTO) 3.47 MIL/uL (4.50-5.90); RED CELL DISTRIBUTION WIDTH 19.6 % (11.5-14.5); WHITE BLOOD COUNT (AUTO) 13.3 K/uL (4.5-11.0)
[2016-10-16 13:00] LABS: RBC MORPHOLOGY COMMENT ABNORMAL RBC MORPH
[2016-10-16 13:02] LABS: GLUCOSE,POINT OF CARE 74 MG/DL (70-110)
[2016-10-16 13:09] LABS: CALCIUM, TOTAL 8.5 mg/dL (8.8-10.5); CREATININE 7.25 mg/dL (0.60-1.30); POTASSIUM 5.2 mmol/L (3.5-5.1)
[2016-10-16 13:14] LABS: TOTAL PROTEIN, SERUM 7.6 g/dL (6.4-8.2)
[2016-10-16 13:50] LABS: PROCALCITONIN (PCT) 1.6 ng/mL (<0.50)
[2016-10-16] MEDS ORDERED: PIPERACILLIN SODIUM/TAZOBACTAM 2.25 GM in DEXTROSE 5%-WATER 50 ML IV ONE (14:00)
[2016-10-16 14:36] LABS: GLUCOSE,POINT OF CARE 80 MG/DL (70-110)
[2016-10-16 20:40] VITALS: BP 121/78
[2016-10-16] MEDS: ATORVASTATIN CALCIUM 10 MG TABLET PO SCH (21:00)
[2016-10-16] MEDS ORDERED: SODIUM CHLORIDE 0.9% 250 ML IV ONE (21:39)
[2016-10-16 23:26] VITALS: BP 116/67
[2016-10-17] MEDS: HEPARIN SODIUM,PORCINE 5,000 UNITS/ML VIAL SQ SCH ×5 (01:03→23:29)
[2016-10-17] MEDS: IPRATROPIUM BROMIDE 0.5 MG/2.5 ML NEB SOLUTION NEB SCH ×5 (02:52→23:14)
[2016-10-17] MEDS: ALBUTEROL SULFATE 2.5 MG/0.5 ML NEB SOLUTION NEB SCH ×5 (02:52→23:14)
[2016-10-17 03:26] VITALS: BP 135/89
[2016-10-17 04:41] LABS: GLUCOSE,POINT OF CARE 81 MG/DL (70-110)
[2016-10-17] MEDS: PIPERACILLIN SODIUM/TAZOBACTAM 2.25 GM in DEXTROSE 5%-WATER 50 ML IV SCH ×3 (04:59→21:06)
[2016-10-17 06:04] LABS: ALBUMIN 2.5 g/dL (3.4-5.0); BILIRUBIN,TOTAL 0.9 mg/dL (0.1-1.0); CALCIUM, TOTAL 8.5 mg/dL (8.8-10.5); CREATININE 4.38 mg/dL (0.60-1.30); POTASSIUM 4.5 mmol/L (3.5-5.1); TOTAL PROTEIN, SERUM 7.1 g/dL (6.4-8.2)
[2016-10-17] MEDS: LEVOTHYROXINE SODIUM 25 MCG TABLET PO SCH (06:22)
[2016-10-17 06:30] LABS: BASOPHILS % (AUTO) 0.3 % (0.0-2.0); EOSINOPHILS % (AUTO) 1.8 % (1.0-6.0); HEMOGLOBIN 10.4 g/dL (13.5-17.5); LYMPHOCYTES # (AUTO) 0.9 K/uL (1.0-4.8); LYMPHOCYTES % (AUTO) 8.6 % (22.0-44.0); MEAN CORPUSCULAR HEMOGLOBIN 31.6 pg (26.0-34.0); MEAN CORPUSCULAR HGB CONC 31.4 G/dL (31.0-37.0); MEAN CORPUSCULAR VOLUME 101 fL (80-100); MONOCYTES % (AUTO) 10.2 % (2.0-9.0); NEUTROPHILS # (AUTO) 7.9 K/uL (1.8-7.7); NEUTROPHILS % (AUTO) 79.1 % (40.0-70.0); PLATELET COUNT (AUTO) 119 K/uL (150-450); RED BLOOD CELL COUNT(AUTO) 3.29 MIL/uL (4.50-5.90); RED CELL DISTRIBUTION WIDTH 20.7 % (11.5-14.5); WHITE BLOOD COUNT (AUTO) 10.1 K/uL (4.5-11.0)
[2016-10-17] MEDS: DEXTROSE 50%-WATER 25 GM/50 ML SYRINGE IVP PRN ×2 (06:40→17:58)
[2016-10-17 07:04] VITALS: BP 123/72
[2016-10-17 07:06] LABS: RBC MORPHOLOGY COMMENT ABNORMAL RBC MORPH
[2016-10-17 08:41] LABS: GLUCOSE COMMENT 1 Doctor Notified; GLUCOSE,POINT OF CARE 71 MG/DL (70-110)
[2016-10-17] MEDS: CLOPIDOGREL BISULFATE 75 MG TABLET PO SCH (09:00)
[2016-10-17] MEDS: ASPIRIN 81 MG CHEWABLE TABLET PO SCH (09:00)
[2016-10-17] MEDS: VITAMIN B COMP/VIT C/FOLIC ACID CAPSULE PO SCH (09:00)
[2016-10-17] MEDS: LOSARTAN POTASSIUM 50 MG TABLET PO SCH (09:00)
[2016-10-17] MEDS: PANTOPRAZOLE SODIUM 40 MG/VIAL IVP SCH (09:07)
[2016-10-17 11:29] VITALS: BP 109/69
[2016-10-17 13:08] LABS: APPEARANCE,UNSPUN,BODY FLUID HAZY (CLEAR); COLOR,BODY FLUID YELLOW (LT YELLOW)
[2016-10-17] MEDS ORDERED: DEXTROSE 10%-WATER 250 ML IV ONE (18:00)
[2016-10-17 19:30] VITALS: BP 128/69
[2016-10-17] MEDS: ATORVASTATIN CALCIUM 10 MG TABLET PO SCH (20:00)
[2016-10-17] MEDS ORDERED: SODIUM CHLORIDE 0.9% 250 ML IV ONE (20:04)
[2016-10-17] MEDS ORDERED: 0.9% SODIUM CHLORIDE 10 ML SYRINGE IVP PRN (21:00)
[2016-10-17 23:37] VITALS: BP 121/61
[2016-10-18] MEDS: ALBUTEROL SULFATE 2.5 MG/0.5 ML NEB SOLUTION NEB SCH ×6 (02:45→23:05)
[2016-10-18] MEDS: IPRATROPIUM BROMIDE 0.5 MG/2.5 ML NEB SOLUTION NEB SCH ×6 (02:45→23:05)
[2016-10-18 05:18] VITALS: BP 142/66
[2016-10-18] MEDS: LEVOTHYROXINE SODIUM 25 MCG TABLET PO SCH (05:18)
[2016-10-18] MEDS: PIPERACILLIN SODIUM/TAZOBACTAM 2.25 GM in DEXTROSE 5%-WATER 50 ML IV SCH ×3 (05:23→21:41)
[2016-10-18 05:43] LABS: GLUCOSE,POINT OF CARE 81 MG/DL (70-110)
[2016-10-18 05:43] LABS: GLUCOSE COMMENT 1 Repeated; GLUCOSE,POINT OF CARE 67 MG/DL (70-110)
[2016-10-18 06:22] LABS: ALBUMIN 2.5 g/dL (3.4-5.0); CALCIUM, TOTAL 8.6 mg/dL (8.8-10.5); CREATININE 3.77 mg/dL (0.60-1.30); POTASSIUM 4.2 mmol/L (3.5-5.1)
[2016-10-18 06:59] LABS: BASOPHILS # (AUTO) 0.01 K/uL (0.00-0.20); BASOPHILS % (AUTO) 0.1 % (0.0-2.0); EOSINOPHILS # (AUTO) 0.21 K/uL (0.00-0.70); EOSINOPHILS % (AUTO) 2.28 % (1.0-6.0); HEMATOCRIT 34.7 % (41-53); HEMOGLOBIN 11.2 g/dL (13.5-17.5); LYMPHOCYTES # (AUTO) 0.8 K/uL (1.0-4.8); LYMPHOCYTES % (AUTO) 8.6 % (22.0-44.0); MEAN CORPUSCULAR HGB CONC 32.2 G/dL (31.0-37.0); MEAN CORPUSCULAR VOLUME 99 fL (80-100); MONOCYTES # (AUTO) 0.9 K/uL (0.1-1.0); MONOCYTES % (AUTO) 10.1 % (2.0-9.0); NEUTROPHILS # (AUTO) 7.4 K/uL (1.8-7.7); PLATELET COUNT (AUTO) 141 K/uL (150-450); WHITE BLOOD COUNT (AUTO) 9.4 K/uL (4.5-11.0)
[2016-10-18] MEDS ORDERED: VANCOMYCIN HCL 1 GM/D5% WATER 200 ML IV ONE (08:00)
[2016-10-18 08:05] VITALS: BP 128/76
[2016-10-18] MEDS: HEPARIN SODIUM,PORCINE 5,000 UNITS/ML VIAL SQ SCH ×3 (08:26→23:34)
[2016-10-18] MEDS: PANTOPRAZOLE SODIUM 40 MG/VIAL IVP SCH (08:26)
[2016-10-18] MEDS: ASPIRIN 81 MG CHEWABLE TABLET PO SCH (10:28)
[2016-10-18] MEDS: VITAMIN B COMP/VIT C/FOLIC ACID CAPSULE PO SCH (10:28)
[2016-10-18] MEDS: CLOPIDOGREL BISULFATE 75 MG TABLET PO SCH (10:28)
[2016-10-18] MEDS: LOSARTAN POTASSIUM 50 MG TABLET PO SCH (10:28)
[2016-10-18 12:39] VITALS: BP 122/70
[2016-10-18 16:13] VITALS: BP 111/61
[2016-10-18 19:41] LABS: TOTAL PROTEIN,BODY FLUID,REF 2.6 g/dL
[2016-10-18 19:56] VITALS: BP 110/64
[2016-10-18] MEDS: ATORVASTATIN CALCIUM 10 MG TABLET PO SCH (20:08)
[2016-10-19 00:19] VITALS: BP 122/59
[2016-10-19] MEDS: ALBUTEROL SULFATE 2.5 MG/0.5 ML NEB SOLUTION NEB SCH ×5 (02:43→19:03)
[2016-10-19] MEDS: IPRATROPIUM BROMIDE 0.5 MG/2.5 ML NEB SOLUTION NEB SCH ×5 (02:43→19:03)
[2016-10-19 04:00] VITALS: BP 133/66
[2016-10-19] MEDS: PIPERACILLIN SODIUM/TAZOBACTAM 2.25 GM in DEXTROSE 5%-WATER 50 ML IV SCH ×3 (05:29→21:34)
[2016-10-19] MEDS: DEXTROSE 50%-WATER 25 GM/50 ML SYRINGE IVP PRN (05:39)
[2016-10-19] MEDS: LEVOTHYROXINE SODIUM 25 MCG TABLET PO SCH (05:39)
[2016-10-19 07:23] VITALS: BP 122/72
[2016-10-19] MEDS: CLOPIDOGREL BISULFATE 75 MG TABLET PO SCH (08:30)
[2016-10-19] MEDS: ASPIRIN 81 MG CHEWABLE TABLET PO SCH (08:30)
[2016-10-19] MEDS: VITAMIN B COMP/VIT C/FOLIC ACID CAPSULE PO SCH (08:30)
[2016-10-19] MEDS: PANTOPRAZOLE SODIUM 40 MG/VIAL IVP SCH (08:30)
[2016-10-19] MEDS: HEPARIN SODIUM,PORCINE 5,000 UNITS/ML VIAL SQ SCH ×2 (08:31→16:00)
[2016-10-19] MEDS: LOSARTAN POTASSIUM 50 MG TABLET PO SCH (08:33)
[2016-10-19] MEDS ORDERED: SODIUM CHLORIDE 0.9% 2,000 ML IV ONE (08:49)
[2016-10-19 11:02] VITALS: BP 127/78
[2016-10-19] MEDS ORDERED: MANNITOL 25%-12.5 GM/50 ML VIAL IVP PRN (11:15)
[2016-10-19 11:57] LABS: GLUCOSE,POINT OF CARE 96 MG/DL (70-110)
[2016-10-19 15:40] VITALS: BP 135/66
[2016-10-19 20:12] VITALS: BP 146/78
[2016-10-19] MEDS: ATORVASTATIN CALCIUM 10 MG TABLET PO SCH (21:33)
[2016-10-20] VITALS (7 sets, daily range): BP systolic 119–140; BP diastolic 50–99
[2016-10-20] MEDS: HEPARIN SODIUM,PORCINE 5,000 UNITS/ML VIAL SQ SCH ×3 (00:23→16:26)
[2016-10-20] MEDS: ALBUTEROL SULFATE 2.5 MG/0.5 ML NEB SOLUTION NEB SCH ×7 (01:23→23:06)
[2016-10-20] MEDS: IPRATROPIUM BROMIDE 0.5 MG/2.5 ML NEB SOLUTION NEB SCH ×7 (01:23→23:06)
[2016-10-20] MEDS: LEVOTHYROXINE SODIUM 25 MCG TABLET PO SCH (06:09)
[2016-10-20] MEDS: PIPERACILLIN SODIUM/TAZOBACTAM 2.25 GM in DEXTROSE 5%-WATER 50 ML IV SCH ×3 (06:09→21:40)
[2016-10-20] MEDS: CLOPIDOGREL BISULFATE 75 MG TABLET PO SCH (08:27)
[2016-10-20] MEDS: LOSARTAN POTASSIUM 50 MG TABLET PO SCH (08:27)
[2016-10-20] MEDS: PANTOPRAZOLE SODIUM 40 MG/VIAL IVP SCH (08:27)
[2016-10-20] MEDS: ASPIRIN 81 MG CHEWABLE TABLET PO SCH (08:27)
[2016-10-20] MEDS: VITAMIN B COMP/VIT C/FOLIC ACID CAPSULE PO SCH (08:27)
[2016-10-20] MEDS: ATORVASTATIN CALCIUM 10 MG TABLET PO SCH (21:40)
[2016-10-21] MEDS: HEPARIN SODIUM,PORCINE 5,000 UNITS/ML VIAL SQ SCH ×3 (00:54→16:57)
[2016-10-21] MEDS: IPRATROPIUM BROMIDE 0.5 MG/2.5 ML NEB SOLUTION NEB SCH ×6 (02:30→23:22)
[2016-10-21] MEDS: ALBUTEROL SULFATE 2.5 MG/0.5 ML NEB SOLUTION NEB SCH ×6 (02:31→23:22)
[2016-10-21 04:28] VITALS: BP 113/73
[2016-10-21] MEDS: PIPERACILLIN SODIUM/TAZOBACTAM 2.25 GM in DEXTROSE 5%-WATER 50 ML IV SCH ×3 (06:20→21:56)
[2016-10-21] MEDS: LEVOTHYROXINE SODIUM 25 MCG TABLET PO SCH (07:03)
[2016-10-21 08:05] VITALS: BP 126/72
[2016-10-21] MEDS: PANTOPRAZOLE SODIUM 40 MG/VIAL IVP SCH (09:36)
[2016-10-21] MEDS: ASPIRIN 81 MG CHEWABLE TABLET PO SCH (09:36)
[2016-10-21] MEDS: LOSARTAN POTASSIUM 50 MG TABLET PO SCH (09:36)
[2016-10-21] MEDS: VITAMIN B COMP/VIT C/FOLIC ACID CAPSULE PO SCH (09:37)
[2016-10-21] MEDS: CLOPIDOGREL BISULFATE 75 MG TABLET PO SCH (09:37)
[2016-10-21] MEDS ORDERED: PIPERACILLIN SODIUM/TAZOBACTAM 0.75 GM in DEXTROSE 5%-WATER 50 ML IV PRN (10:15)
[2016-10-21 12:04] VITALS: BP 126/66
[2016-10-21 16:30] VITALS: BP 128/66
[2016-10-21 19:37] VITALS: BP 139/85
[2016-10-21] MEDS ORDERED: SODIUM CHLORIDE 0.9% 100 ML ONE (19:57)
[2016-10-21] MEDS: ATORVASTATIN CALCIUM 10 MG TABLET PO SCH (20:03)
[2016-10-21 23:30] VITALS: BP 125/70
[2016-10-22] MEDS: HEPARIN SODIUM,PORCINE 5,000 UNITS/ML VIAL SQ SCH ×3 (00:02→16:02)
[2016-10-22] MEDS: ALBUTEROL SULFATE 2.5 MG/0.5 ML NEB SOLUTION NEB SCH ×4 (03:31→15:15)
[2016-10-22] MEDS: IPRATROPIUM BROMIDE 0.5 MG/2.5 ML NEB SOLUTION NEB SCH ×4 (03:31→15:15)
[2016-10-22 04:30] VITALS: BP 134/72
[2016-10-22] MEDS: PIPERACILLIN SODIUM/TAZOBACTAM 2.25 GM in DEXTROSE 5%-WATER 50 ML IV SCH ×2 (06:09→15:51)
[2016-10-22] MEDS: LEVOTHYROXINE SODIUM 25 MCG TABLET PO SCH (06:09)
[2016-10-22 07:40] VITALS: BP 125/71
[2016-10-22] MEDS ORDERED: VANCOMYCIN HCL 500 MG in DEXTROSE 5%-WATER 100 ML IV ONE (08:00)
[2016-10-22 08:17] LABS: BASOPHILS % (AUTO) 0.4 % (0.0-2.0); EOSINOPHILS % (AUTO) 6.7 % (1.0-6.0); HEMATOCRIT 34.2 % (41-53); HEMOGLOBIN 10.8 g/dL (13.5-17.5); LYMPHOCYTES # (AUTO) 0.8 K/uL (1.0-4.8); LYMPHOCYTES % (AUTO) 12.4 % (22.0-44.0); MEAN CORPUSCULAR HEMOGLOBIN 31.3 pg (26.0-34.0); MEAN CORPUSCULAR HGB CONC 31.6 G/dL (31.0-37.0); MEAN CORPUSCULAR VOLUME 99 fL (80-100); MONOCYTES # (AUTO) 0.7 K/uL (0.1-1.0); MONOCYTES % (AUTO) 10.7 % (2.0-9.0); NEUTROPHILS # (AUTO) 4.7 K/uL (1.8-7.7); NEUTROPHILS % (AUTO) 69.8 % (40.0-70.0); PLATELET COUNT (AUTO) 146 K/uL (150-450); RED BLOOD CELL COUNT(AUTO) 3.45 MIL/uL (4.50-5.90); WHITE BLOOD COUNT (AUTO) 6.7 K/uL (4.5-11.0)
[2016-10-22 08:34] LABS: ALBUMIN 2.4 g/dL (3.4-5.0); BILIRUBIN,TOTAL 0.8 mg/dL (0.1-1.0); CALCIUM, TOTAL 8.3 mg/dL (8.8-10.5); CREATININE 6.94 mg/dL (0.60-1.30); MAGNESIUM 2.5 mg/dL (1.80-2.40); POTASSIUM 4.8 mmol/L (3.5-5.1); TOTAL PROTEIN, SERUM 7.6 g/dL (6.4-8.2)
[2016-10-22] MEDS ORDERED: -POST HEMODIALYSIS NOTE- MISC SCH (09:00)
[2016-10-22 09:22] LABS: RBC MORPHOLOGY COMMENT ABNORMAL RBC MORPH
[2016-10-22] MEDS ORDERED: SODIUM CHLORIDE 0.9% 2,000 ML IV ONE (09:40)
[2016-10-22] MEDS: CLOPIDOGREL BISULFATE 75 MG TABLET PO SCH (15:51)
[2016-10-22] MEDS: ASPIRIN 81 MG CHEWABLE TABLET PO SCH (15:51)
[2016-10-22] MEDS: LOSARTAN POTASSIUM 50 MG TABLET PO SCH (15:51)
[2016-10-22] MEDS: VITAMIN B COMP/VIT C/FOLIC ACID CAPSULE PO SCH (16:01)
[2016-10-22] MEDS: PANTOPRAZOLE SODIUM 40 MG/VIAL IVP SCH (16:01)
[2016-10-22 16:43] VITALS: BP 124/61
[2016-10-29 06:53] LABS: GLUCOSE,POINT OF CARE 107 MG/DL (70-110)
[2016-10-29 06:53] LABS: GLUCOSE,POINT OF CARE 104 MG/DL (70-110)
[2016-10-29 06:54] LABS: GLUCOSE COMMENT 1 Received Meds; GLUCOSE,POINT OF CARE 64 MG/DL (70-110)
[2016-10-29 06:54] LABS: GLUCOSE COMMENT 1 Received Meds; GLUCOSE,POINT OF CARE 177 MG/DL (70-110)
[2016-10-29 06:54] LABS: GLUCOSE,POINT OF CARE 98 MG/DL (70-110)
[2016-10-29 06:54] LABS: GLUCOSE,POINT OF CARE 94 MG/DL (70-110)
[2016-10-29 06:54] LABS: GLUCOSE,POINT OF CARE 106 MG/DL (70-110)
== END 2016-10-22 17:05 | DRG 871 ==
LOC: EMS 16:24 → AHU 10-16 11:18 → 5S 10-16 16:50
PROVIDERS: ADMIT Internal Medicine Geriatric Medicine; ATTEND Internal Medicine Geriatric Medicine
PROC: 5A09357 Assistance with Respiratory Ventilation, Less than 24 Consecutive Hours, Continuous Positive Airway Pressure (ICD-10-PCS; 2016-10-16)
PROC: 0W9B3ZX Drainage of Left Pleural Cavity, Percutaneous Approach, Diagnostic (ICD-10-PCS; principal; 2016-10-17)
PROC: 5A1D60Z (ICD-10-PCS; 2016-10-19)
DX: A41.9 Sepsis, unspecified organism (principal); J69.0 Pneumonitis due to inhalation of food and vomit; J96.01 Acute respiratory failure with hypoxia; I50.23 Acute on chronic systolic (congestive) heart failure; N18.6 End stage renal disease; I69.354 Hemiplegia and hemiparesis following cerebral infarction affecting left non-dominant side; E87.2 Acidosis; E44.0 Moderate protein-calorie malnutrition; N25.81 Secondary hyperparathyroidism of renal origin; J90 Pleural effusion, not elsewhere classified; I13.2 Hypertensive heart and chronic kidney disease with heart failure and with stage 5 chronic kidney disease, or end stage renal disease; N17.9 Acute kidney failure, unspecified; R13.10 Dysphagia, unspecified; I25.10 Atherosclerotic heart disease of native coronary artery without angina pectoris; I25.5 Ischemic cardiomyopathy; D53.9 Nutritional anemia, unspecified; D63.1 Anemia in chronic kidney disease; D69.6 Thrombocytopenia, unspecified; E03.9 Hypothyroidism, unspecified; E11.22 Type 2 diabetes mellitus with diabetic chronic kidney disease; E78.5 Hyperlipidemia, unspecified; I25.2 Old myocardial infarction; Z68.20 Body mass index [BMI] 20.0-20.9, adult; I69.320 Aphasia following cerebral infarction; Z99.3 Dependence on wheelchair; Z99.2 Dependence on renal dialysis; Z82.49 Family history of ischemic heart disease and other diseases of the circulatory system; Z83.3 Family history of diabetes mellitus; Z87.01 Personal history of pneumonia (recurrent)
CPT/HCPCS: 32555; 51702; 71250; 74230; 76700; 76942; 82306; 82465; 82607; 82746; 82805; 82945; 82962; 83036; 83605; 83615; 83735; 83986; 84145; 84155; 84157; 84439; 84443; 87015; 87040; 87070; 87081; 87101; 87205; 87340; 88108; 88341; 88342; 89051; 90935; 92526; 92610; 92611; 93005; 94640; 94660; 96365; 96366; 96367; 96375; 96376; 99291; C9113; J0330; J1644; J1940; J1956; J2060; J2270; J2543; J3370; J7030; J7050; J7060

== ENCOUNTER → 2016-10-15 | Outpatient (CLI) | payer MEDICARE, MEDICAID ==
[~2016-10-15] MED LIST changes: +ACET-2247 PO; -ACET650S14 PR; -ACID1TAB4 PO; -ASA3 PO; +ASPI81TA2 PO; +ATOR10TA84 PO; -ATOR40TA28 PO; +BISA10S PR; -CHOL100030 PO; +CLOP75 PO; +DSS100 PO; +FAMO20 PO; -HEP5KI SQ; +HEPA500015 SQ; +INSNOV SQ; +LOSA50TA37 PO; +MOM30 PO; +MUPI1OIN5 NASAL; -OXYC-158 PO; -PANT40TA25 PO; +QUET25TA PO; +VANC1I IVPB
== END | disposition home or self-care (01) ==
LOC: RADPV 14:36
PROVIDERS: ATTEND Internal Medicine Cardiovascular Disease
DX: I50.20 Unspecified systolic (congestive) heart failure (principal)
CPT/HCPCS: 93306